=== PATIENT | male | born 1995 | race Caucasian/White ===

== ENCOUNTER 2021-01-04 07:30 | Inpatient (IN) | payer OTHER ==
[~2021-01-04] VITALS: Ht 175.3 cm; Wt 79.5 kg
[2021-01-04] MEDS ORDERED: SODIUM CHLORIDE 0.9% 1,000 ML IV ONE (08:00)
[2021-01-04] MEDS ORDERED: KETOROLAC TROMETHAMINE 30 MG/ML VIAL IVP ONE (08:00)
[2021-01-04] MEDS ORDERED: CloNIDine HCL 0.2 MG TABLET PO ONE (08:00)
[2021-01-04] MEDS ORDERED: ACETAMINOPHEN 325 MG TABLET PO PRN ×3 (08:45→16:45)
[2021-01-04] MEDS ORDERED: ONDANSETRON HCL 4 MG/2 ML VIAL IVP PRN ×2 (08:45→16:45)
[2021-01-04 08:47] LABS: COVID AG,FIA SOURCE NASOPHARYNGEAL
[2021-01-04 08:47] LABS: BASOPHILS % (AUTO) 0.2 % (0.0-2.0); EOSINOPHILS % (AUTO) 0.2 % (1.0-6.0); HEMATOCRIT 46.9 % (41-53); HEMOGLOBIN 16.1 g/dL (13.5-17.5); LYMPHOCYTES # (AUTO) 1.1 K/uL (1.0-4.8); LYMPHOCYTES % (AUTO) 15.6 % (22.0-44.0); MEAN CORPUSCULAR HEMOGLOBIN 30.7 pg (26.0-34.0); MEAN CORPUSCULAR HGB CONC 34.3 G/dL (31.0-37.0); MEAN CORPUSCULAR VOLUME 89 fL (80-100); MONOCYTES # (AUTO) 0.4 K/uL (0.1-1.0); MONOCYTES % (AUTO) 6.1 % (2.0-9.0); NEUTROPHILS # (AUTO) 5.6 K/uL (1.8-7.7); NEUTROPHILS % (AUTO) 77.9 % (40.0-70.0); PLATELET COUNT (AUTO) 250 K/uL (150-450); RED BLOOD CELL COUNT(AUTO) 5.25 MIL/uL (4.50-5.90); RED CELL DISTRIBUTION WIDTH 12.6 % (11.5-14.5)
[2021-01-04 08:59] LABS: ANION GAP 9 mmol/L (8-16); CALCIUM, TOTAL 9.3 mg/dL (8.8-10.5); CARBON DIOXIDE 30 mmol/L (22-29); CHLORIDE 101 mmol/L (98-107); CREATININE 0.87 mg/dL (0.60-1.30); GLOMERULAR FILTR. RATE CALC > 60 mL/min (>60); GLUCOSE,RANDOM 87 mg/dL (70-110); POTASSIUM 4.2 mmol/L (3.5-5.1); SODIUM SERUM 140 mmol/L (136-145); UREA NITROGEN, BLOOD 24 mg/dL (7-18)
[2021-01-04 09:05] LABS: ALANINE AMINOTRANSFERASE 25 U/L (12-78); ALBUMIN 4.1 g/dL (3.4-5.0); ALKALINE PHOSPHATASE 71 U/L (46-116); ASPARTATE AMINOTRANSFERASE 21 U/L (15-37); TOTAL PROTEIN, SERUM 7.9 g/dL (6.4-8.2)
[2021-01-04 09:54] VITALS: BP 110/65
[2021-01-04] MEDS ORDERED: SODIUM CHLORIDE 0.45% 1,000 ML IV SCH (16:45)
[2021-01-04] MEDS ORDERED: MAG HYDROX/AL HYDROX/SIMETH ES 30 ML SUSPENSION UDCUP PO PRN (16:45)
[2021-01-04] MEDS ORDERED: ALBUTEROL SULFATE 2.5 MG/0.5 ML NEB SOLUTION NEB PRN (16:45)
[2021-01-04] MEDS ORDERED: PROMETHAZINE HCL 25 MG TABLET PO PRN (16:45)
[2021-01-04] MEDS ORDERED: BISACODYL 10 MG RECTAL RECTAL SUPPOSITORY PR PRN (16:45)
[2021-01-04] MEDS ORDERED: IBUPROFEN 600 MG TABLET PO PRN (16:45)
[2021-01-04] MEDS ORDERED: MAGNESIUM HYDROXIDE SUSPENSION 30 ML UDCUP PO PRN (16:45)
[2021-01-04] MEDS ORDERED: DICYCLOMINE HCL 10 MG CAPSULE PO PRN (16:45)
[2021-01-04] MEDS ORDERED: BACLOFEN 10 MG TABLET PO PRN (16:45)
[2021-01-04] MEDS ORDERED: LOPERAMIDE HCL 2 MG/15 ML SUSPENSION UDCUP PO PRN (16:45)
[2021-01-04] MEDS ORDERED: IPRATROPIUM BROMIDE 0.5 MG/2.5 ML NEB SOLUTION NEB PRN (16:45)
[2021-01-04 17:00] VITALS: BP 125/78
[2021-01-04] MEDS: CloNIDine HCL 0.1 MG TABLET PO SCH ×2 (17:17→22:57)
[2021-01-04 20:18] VITALS: BP 126/84
[2021-01-04 20:20] VITALS: BP 126/84
[2021-01-04 23:30] VITALS: BP 109/70
[2021-01-05 04:12] VITALS: BP 140/77
[2021-01-05] MEDS: CloNIDine HCL 0.1 MG TABLET PO SCH ×4 (04:49→21:31)
[2021-01-05] MEDS: HEPARIN SODIUM,PORCINE 5,000 UNITS/ML VIAL SQ SCH ×3 (07:46→16:09)
[2021-01-05 08:00] VITALS: BP 128/73
[2021-01-05 11:29] VITALS: BP 106/68
[2021-01-05 15:15] VITALS: BP 115/71
[2021-01-05 20:00] VITALS: BP 137/84
[2021-01-05] MEDS: ZOLPIDEM TARTRATE 5 MG TABLET PO PRN (21:31)
[2021-01-05] MEDS: TraZODone HCL 50 MG TABLET PO PRN (23:42)
[2021-01-06] MEDS: CloNIDine HCL 0.1 MG TABLET PO SCH ×4 (05:40→21:06)
[2021-01-06] MEDS: HydrOXYzine PAMOATE 50 MG CAPSULE PO PRN ×2 (05:40→14:46)
[2021-01-06 05:42] VITALS: BP 122/77
[2021-01-06] MEDS: HEPARIN SODIUM,PORCINE 5,000 UNITS/ML VIAL SQ SCH ×3 (07:33→16:21)
[2021-01-06 08:13] VITALS: BP 132/78
[2021-01-06 16:19] VITALS: BP 119/80
[2021-01-06 20:00] VITALS: BP 122/77
[2021-01-06] MEDS: ZOLPIDEM TARTRATE 5 MG TABLET PO PRN (20:37)
[2021-01-06] MEDS: TraZODone HCL 50 MG TABLET PO PRN (21:38)
[2021-01-07] MEDS: HydrOXYzine PAMOATE 50 MG CAPSULE PO PRN (04:50)
[2021-01-07] MEDS: CloNIDine HCL 0.1 MG TABLET PO SCH ×2 (04:51→10:46)
[2021-01-07 04:54] VITALS: BP 110/75
[2021-01-07] MEDS: HEPARIN SODIUM,PORCINE 5,000 UNITS/ML VIAL SQ SCH ×2 (07:29)
[2021-01-07 07:30] VITALS: BP 109/74
== END 2021-01-07 15:40 | DRG 897 ==
LOC: EMS 07:35 → 6S 09:09
PROVIDERS: ADMIT Hospitalist; ATTEND Hospitalist
DX: F11.23 Opioid dependence with withdrawal (principal); J45.909 Unspecified asthma, uncomplicated; F17.200 Nicotine dependence, unspecified, uncomplicated; F15.10 Other stimulant abuse, uncomplicated; F17.210 Nicotine dependence, cigarettes, uncomplicated; Z20.822 Contact with and (suspected) exposure to COVID-19
CPT/HCPCS: 80053; 85025; 99285; J1644; J1885; J7030